=== PATIENT | male | born 1980 | race Hispanic/Latino ===

== ENCOUNTER 2018-07-08 19:00 | Emergency (ER) | payer OTHER, SELFPAY ==
[2018-07-08] MEDS ORDERED: Lidocaine 1% (PF) 30 ML VIAL ONE (19:52)
[2018-07-08] MEDS ORDERED: Adacel (T-DAP) 0.5 ML VIAL ONE (20:19)
[2018-07-08] MEDS ORDERED: Lidocaine 4% Cream 5 GM TUBE w/ Tegaderm ONE (21:02)
[2018-07-08] MEDS ORDERED: Bacitracin Zinc 1 Packet ONE ×2 (21:57→22:02)
== END 2018-07-08 22:00 | disposition home or self-care (01) ==
LOC: ERS 19:00
DX: L60.0 Ingrowing nail (principal); L03.031 Cellulitis of right toe; F17.210 Nicotine dependence, cigarettes, uncomplicated; Z71.6 Tobacco abuse counseling
CPT/HCPCS: 11765; 90471; 90715; J2001

== ENCOUNTER 2018-08-31 14:38 | Day surgery (SDC) | payer SELFPAY ==
[~2018-08-31 14:38] MED LIST: Dexamethasone 20 MG/5 ML VIAL ONE; Glycopyrrolate 0.2 MG/ML 5 ML SYRINGE ONE; Lidocaine 1% PF 5 ML VIAL ONE; Ondansetron HCl/PF 4 MG/2 ML Vial ONE; PROPOFOL 200 MG/20 ML VIAL ONE; Succinylcholine Chloride 20 MG/ML 10 ml SYRINGE FS ONE
[2018-08-31 15:07] LABS: #Basophils 0.1 thou/uL (0.0-0.2); #Eosinphils 0.4 thou/uL (0.0-0.7); #Lymphocytes 3.7 thou/uL (1.20-3.40); #Monocytes 1.1 thou/uL (0.11-0.59); #Neutrophils 6.9 thou/uL (1.40-6.50); %Basophils 0.6 % (0.0-1.0); %Lymphocytes 30.4 % (21.0-51.0); %Monocytes 9.2 % (0.0-10.0); %Neutrophils 56.8 % (42.0-75.0); Hemoglobin 14.4 g/dL (14.0-18.0); Mean Corpuscular HGB CONC 34.2 g/dL (32.0-36.0); Mean Corpuscular Hemoglobin 32.2 pg (27.0-31.0); Mean Corpuscular Volume 94.2 fL (78.0-98.0); Mean Platelet Volume 7.9 fL (7.4-10.4); Platelet Count 272 thou/uL (130-400); Red Blood Cell (RBC) Count 4.48 mill/uL (4.70-6.10); White Blood Cell (WBC) Count 12.1 thou/uL (4.8-10.8)
[2018-08-31] MEDS ORDERED: Ondansetron HCl/PF 4 MG/2 ML Vial ONE (15:11)
[2018-08-31] MEDS ORDERED: Morphine 4 MG/ML VIAL ONE (15:12)
[2018-08-31 15:35] LABS: Bilirubin Negative (Negative); Blood, Urine Negative (Negative); Clarity CLEAR (Clear); Glucose, Urine (Dipstick) Negative (Negative); Leukocyte Negative (Negative); Nitrite Negative (Negative); Protein, Urine (Dipstick) Negative (Neg-Trace); Specific Gravity, Urine 1.024 (1.002-1.036); Urobilinogen 0.2 mg/dL (0.2-1.0); pH, Urine 5.5 (5.0-9.0)
[2018-08-31 15:38] LABS: ALT (SGPT) 22 U/L (8-55); AST (SGOT) 14 U/L (5-34); Albumin 4.3 g/dL (3.5-5.0); Alkaline Phosphatase 113 U/L (40-150); Anion Gap 12 mmol/L (10-20); BUN (Urea Nitrogen) 13 mg/dL (8.9-20.6); Bilirubin, Total 0.6 mg/dL (0.2-1.2); Calc. Creatinine Clearance 0 mL/min (70-130); Calcium 9.6 mg/dL (7.8-10.44); Carbon Dioxide 24 mmol/L (22-29); Chloride 104 mmol/L (98-107); Estimated GFR-MDRD 89; Globulin 3.4 g/dL (2.4-3.5); Glucose 122 mg/dL (70-105); Lipase 27 U/L (8-78); Potassium 4.1 mmol/L (3.5-5.1); Protein, Total 7.7 g/dL (6.0-8.3); Sodium 136 mmol/L (136-145)
[2018-08-31] MEDS ORDERED: Piperacillin/Tazobactam 4.5 GM VIAL ONE (16:25)
[2018-08-31] MEDS ORDERED: Sodium Chloride 0.9% 100 ML ONE (16:25)
--- NOTE | 2018-08-31 17:51 | HP ---
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 He has a 2-day hist ory of right lower quadrant pain, nausea, vomiting on one occasion, increased pain with movement. He has not had a fever. He presents to the emergency room and was evaluated by Dr. David Waddell. ALLERGIES: None. TOBACCO: 3-6 cigarettes a day. ALCOHOL: Rarely. MEDICATIONS: None routinely. PAST SURGICAL HISTORY: Noncontributory. PAST MEDICAL HISTORY: Noncontributory. REVIEW OF SYSTEMS: Noncontributory. PHYSICAL EXAMINATION: VITAL SIGNS: Blood pressure 120/74, respiratory rate 18. HEAD, EARS, EYES, NOSE, AND THROAT: Unremarkable. LUNGS: Clear to auscultation. CARDIAC: Regular rate and rhythm without murmur or gallop. ABDOMEN: Soft. Tenderness in right lower quadrant, guarding, rebound. EXTREMITIES: Unremarkable. LABORATORY DATA: White count 12, hemoglobin 14. Basic metabolic profile normal. ASSESSMENT AND PLAN: Acute appendicitis. We recommend laparoscopic video appendectomy. Possibility of normal appendix discussed. Risk of operation including infection, bleeding, reoperation for blee ding were discussed. Consents obtained, questions answered.
[2018-08-31] MEDS ORDERED: Ketorolac Tromethamine 30 MG/ML VIAL ONE (18:36)
[2018-08-31] MEDS ORDERED: Midazolam HCl 2 mg/2 ml Vial ONE (18:41)
[2018-08-31] MEDS ORDERED: Bupivacaine/Epinephrine 0.25% 30 ML VIAL ONE (18:53)
[2018-08-31] MEDS ORDERED: Bupivacaine HCl 0.5%/Epinephrine 1:200,000/PF 30 ml Vial ONE (19:42)
[2018-08-31] MEDS ORDERED: Fentanyl 100 MCG/2 ML VIAL ONE ×2 (20:52→22:26)
[2018-08-31] MEDS ORDERED: HYDROmorphone 2 MG/ML VIAL ONE (20:53)
--- NOTE | 2018-09-01 02:31 | OP ---
PREOPERATIVE DIAGNOSES: Appendicitis, right lower quadrant pain. POSTOPERATIVE DIAGNOSIS: Right lower quadrant pain, uncertain etiology. PROCEDURE: Laparoscopic video appendectomy. Appendix appeared to be normal. SURGEON: Naga Padgett MD ANESTHESIA: General. Local 0.5% Marcaine with epinephrine, 30 mL. PROCEDURE IN DETAIL: The patient was taken to the operating room where under general anesthesia, abd omen was prepared with ChloraPrep, draped in routine fashion. Local anesthetic infiltrated into the skin and subcutaneous tissue about each port site. Infraumbilical incision was made. Pneumoperitone um to 15 mmHg obtained with the Veress needle, replacing it with a 5 port, video laparoscope inserted . Right lateral subcostal incision was made and a 5 port placed. Suprapubic incision was made and 1 2 port placed. Mesoappendix taken down with LigaSure. appendiceal stump across the cecum with Endo blue load BARRIE stapler. Appendix removed in an Endobag. Appendiceal stump hemostasis ens ured. Irrigant and pneumoperitoneum evacuated after suprapubic fascia approximated with 0 Vicryl Gra Nee needle. All instruments were removed and all skin incisions approximated with interrupted subder mal 4-0 Monocryl and DermaGlue applied.
== END 2018-08-31 23:06 | disposition home or self-care (01) ==
LOC: ERS 14:38 → SDC 18:11
PROVIDERS: ATTEND Specialist
PROC: 0DTJ4ZZ Resection of Appendix, Percutaneous Endoscopic Approach (ICD-10-PCS; principal; 2018-08-31)
DX: K35.80 Unspecified acute appendicitis (principal); F17.210 Nicotine dependence, cigarettes, uncomplicated
CPT/HCPCS: 36415; 80053; 81003; 83690; 85025; 88304; 96361; 96365; 96374; 96375; J0131; J0670; J1100; J1170; J1885; J2001; J2250; J2270; J2405; J2543; J2704; J3010; J7050

== ENCOUNTER 2020-09-17 12:03 | Emergency (ER) | payer SELFPAY ==
[2020-09-17 12:50] LABS: #Basophils 0.1 thou/uL (0.0-0.2); #Eosinphils 0.3 thou/uL (0.0-0.7); #Lymphocytes 2.7 thou/uL (1.20-3.40); #Monocytes 0.6 thou/uL (0.11-0.59); #Neutrophils 4.9 thou/uL (1.40-6.50); %Basophils 0.7 % (0.0-1.0); %Eosinophils 3.7 % (0.0-10.0); %Lymphocytes 31.6 % (21.0-51.0); %Monocytes 7.1 % (0.0-10.0); %Neutrophils 56.9 % (42.0-75.0); Hemoglobin 14.9 g/dL (14.0-18.0); Mean Corpuscular HGB CONC 35.7 g/dL (32.0-36.0); Mean Corpuscular Hemoglobin 32.2 pg (27.0-31.0); Mean Corpuscular Volume 90.1 fL (78.0-98.0); Platelet Count 223 thou/uL (130-400); RBC Distribution Width 11.9 % (11.5-14.5); Red Blood Cell (RBC) Count 4.62 mill/uL (4.70-6.10); White Blood Cell (WBC) Count 8.5 thou/uL (4.8-10.8)
[2020-09-17 13:36] LABS: ALT (SGPT) 23 U/L (8-55); AST (SGOT) 22 U/L (5-34); Albumin 4.2 g/dL (3.5-5.0); Alkaline Phosphatase 137 U/L (40-110); Anion Gap 17 mmol/L (10-20); BUN (Urea Nitrogen) 18 mg/dL (8.9-20.6); Bilirubin, Total 0.9 mg/dL (0.2-1.2); Calc. Creatinine Clearance 0 mL/min (70-130); Carbon Dioxide 23 mmol/L (22-29); Chloride 97 mmol/L (98-107); Estimated GFR-MDRD 84; Globulin 3.1 g/dL (2.4-3.5); Glucose 448 mg/dL (70-105); Potassium 4.9 mmol/L (3.5-5.1); Protein, Total 7.3 g/dL (6.0-8.3); Sodium 132 mmol/L (136-145)
[2020-09-17 14:05] LABS: Bilirubin Negative (Negative); Blood, Urine Negative (Negative); Clarity Clear (Clear); Glucose, Urine (Dipstick) Greater than 1000 mg/dL (Negative); Ketone, Urine 40 mg/dL (Negative); Leukocyte Negative Leu/uL (Negative); Nitrite Negative (Negative); Protein, Urine (Dipstick) Negative (Neg-Trace); Urobilinogen Normal mg/dL (Less than 2); pH, Urine 5.5 (5.0-9.0)
== END 2020-09-17 18:10 | disposition home or self-care (01) ==
LOC: ERS 12:03
DX: E11.65 Type 2 diabetes mellitus with hyperglycemia (principal); F17.210 Nicotine dependence, cigarettes, uncomplicated
CPT/HCPCS: 36416; 80053; 81003; 82010; 85025; 99284

== ENCOUNTER 2021-04-08 00:32 | Emergency (ER) | payer SELFPAY ==
[2021-04-08] MEDS ORDERED: Ketorolac Tromethamine 30 MG/ML VIAL ONE (03:48)
== END 2021-04-08 04:03 | disposition home or self-care (01) ==
LOC: ERS 00:32
DX: S93.402A Sprain of unspecified ligament of left ankle, initial encounter (principal); F17.210 Nicotine dependence, cigarettes, uncomplicated; X50.1XXA Overexertion from prolonged static or awkward postures, initial encounter
CPT/HCPCS: 96372; J1885

== ENCOUNTER 2021-09-28 16:10 | Inpatient (IN) | payer SELFPAY ==
[2021-09-28 18:18] LABS: Bilirubin Negative (Negative); Blood, Urine Negative (Negative); Clarity Clear (Clear); Glucose, Urine (Dipstick) Normal (Negative); Ketone, Urine Negative (Negative); Leukocyte Negative Leu/uL (Negative); Nitrite Negative (Negative); Protein, Urine (Dipstick) Negative (Neg-Trace); Specific Gravity, Urine 1.027 (1.002-1.036); Urobilinogen Normal mg/dL (Less than 2)
[2021-09-28 18:24] LABS: #Eosinphils 0.3 thou/uL (0.0-0.7); #Lymphocytes 4.1 thou/uL (1.20-3.40); #Monocytes 0.6 thou/uL (0.11-0.59); #Neutrophils 4.4 thou/uL (1.40-6.50); %Basophils 0.3 % (0.0-1.0); %Eosinophils 3.3 % (0.0-10.0); %Lymphocytes 43.4 % (21.0-51.0); %Monocytes 6.5 % (0.0-10.0); %Neutrophils 46.4 % (42.0-75.0); Hemoglobin 14.1 g/dL (14.0-18.0); Mean Corpuscular HGB CONC 35.2 g/dL (32.0-36.0); Mean Corpuscular Hemoglobin 32.3 pg (27.0-31.0); Mean Corpuscular Volume 91.8 fL (78.0-98.0); Platelet Count 251 thou/uL (130-400); RBC Distribution Width 11.4 % (11.5-14.5); Red Blood Cell (RBC) Count 4.37 mill/uL (4.70-6.10); White Blood Cell (WBC) Count 9.5 thou/uL (4.8-10.8)
[2021-09-28 18:53] LABS: ALT (SGPT) 17 U/L (8-55); AST (SGOT) 15 U/L (5-34); Albumin 4.3 g/dL (3.5-5.0); Alkaline Phosphatase 108 U/L (40-110); Anion Gap 13 mmol/L (10-20); BUN (Urea Nitrogen) 14 mg/dL (8.9-20.6); Bilirubin, Total 0.4 mg/dL (0.2-1.2); Calc. Creatinine Clearance 0 mL/min (70-130); Calcium 9.8 mg/dL (7.8-10.44); Carbon Dioxide 27 mmol/L (22-29); Chloride 102 mmol/L (98-107); Globulin 3.3 g/dL (2.4-3.5); Glucose 134 mg/dL (70-105); Potassium 3.8 mmol/L (3.5-5.1); Protein, Total 7.6 g/dL (6.0-8.3); Sodium 138 mmol/L (136-145)
[2021-09-28 19:40] LABS: SARS-CoV-2 NAA Rapid Test Not Detected (NotDetected)
[2021-09-28 20:16] LABS: Free T4 (Free Thyroxine) 0.91 ng/dL (0.70-1.48)
[2021-09-28 20:17] LABS: Luteinizing Hormone 0.51 mIU/mL (See Ranges)
[2021-09-28 20:20] VITALS: BMI 40.4
[2021-09-28] MEDS ORDERED: Ondansetron PF 4 MG/2 ML Vial IVP PRN (21:21)
[2021-09-28] MEDS ORDERED: Acetaminophen 325 MG TAB PO PRN (21:21)
[2021-09-29 04:11] LABS: #Basophils 0.1 thou/uL (0.0-0.2); #Eosinphils 0.4 thou/uL (0.0-0.7); #Lymphocytes 4.2 thou/uL (1.20-3.40); #Monocytes 0.9 thou/uL (0.11-0.59); #Neutrophils 3.3 thou/uL (1.40-6.50); %Basophils 0.8 % (0.0-1.0); %Eosinophils 4.5 % (0.0-10.0); %Lymphocytes 46.9 % (21.0-51.0); %Monocytes 10.1 % (0.0-10.0); %Neutrophils 37.8 % (42.0-75.0); Hemoglobin 13.5 g/dL (14.0-18.0); Mean Corpuscular HGB CONC 35.9 g/dL (32.0-36.0); Mean Corpuscular Hemoglobin 32.9 pg (27.0-31.0); Mean Corpuscular Volume 91.8 fL (78.0-98.0); Mean Platelet Volume 8.1 fL (7.4-10.4); Platelet Count 245 thou/uL (130-400); RBC Distribution Width 11.3 % (11.5-14.5); Red Blood Cell (RBC) Count 4.09 mill/uL (4.70-6.10); White Blood Cell (WBC) Count 8.8 thou/uL (4.8-10.8)
[2021-09-29 04:36] LABS: Anion Gap 13 mmol/L (10-20); BUN (Urea Nitrogen) 15 mg/dL (8.9-20.6); Calc. Creatinine Clearance 219 mL/min (70-130); Calcium 9.3 mg/dL (7.8-10.44); Carbon Dioxide 25 mmol/L (22-29); Chloride 104 mmol/L (98-107); Glucose 120 mg/dL (70-105); Potassium 3.9 mmol/L (3.5-5.1); Sodium 138 mmol/L (136-145)
[2021-09-29 05:54] LABS: Hemoglobin A1c 6.3 % (4.0-6.0)
[2021-09-29] MEDS ORDERED: Lorazepam 2 MG/ML VIAL SLOW IVP PRN ×2 (13:41→15:30)
[2021-09-29] MEDS ORDERED: Oxymetazoline HCl 0.05% (30 ML BOT) NS PRN (13:50)
[2021-09-29] MEDS ORDERED: Fluticasone Propionate Nasal Spray 16 gm Bottle NASAL SCH (14:00)
[2021-09-30] MEDS ORDERED: Lorazepam 2 MG/ML VIAL SLOW IVP SCH (06:45)
[2021-09-30 07:58] VITALS: TEMP 98.2
[2021-09-30] MEDS ORDERED: Fluticasone Propionate Nasal Spray 16 gm Bottle NASAL SCH (09:00)
[2021-09-30] MEDS ORDERED: Magnevist 469MG/ML 20 ML VIAL ONE (13:37)
[2021-09-30 13:48] VITALS: BP 143/68
== END 2021-09-30 17:01 | disposition home or self-care (01) | DRG 644 ==
LOC: ERS 16:10 → ONC 18:10
PROVIDERS: ADMIT Family Medicine; ATTEND Internal Medicine
DX: D35.2 Benign neoplasm of pituitary gland (principal); Z68.41 Body mass index [BMI] 40.0-44.9, adult; E11.9 Type 2 diabetes mellitus without complications; F17.210 Nicotine dependence, cigarettes, uncomplicated; N62 Hypertrophy of breast; H02.432 Paralytic ptosis of left eyelid; E66.01 Morbid (severe) obesity due to excess calories; H49.02 Third [oculomotor] nerve palsy, left eye; Z88.8 Allergy status to other drugs, medicaments and biological substances; Z82.49 Family history of ischemic heart disease and other diseases of the circulatory system; Z83.3 Family history of diabetes mellitus; Z80.9 Family history of malignant neoplasm, unspecified; Z90.49 Acquired absence of other specified parts of digestive tract
CPT/HCPCS: 36415; 70450; 70553; 80048; 80053; 81003; 82533; 83002; 83003; 83036; 84146; 84439; 84443; 85025; 93005; J2060; U0002

== ENCOUNTER 2024-01-17 16:27 | Emergency (ER) | payer SELFPAY ==
[2024-01-17] MEDS ORDERED: Acetaminophen 500 MG TAB ONE (16:33)
[2024-01-17 16:55] LABS: #Eosinphils 0.2 thou/uL (0.0-0.7); #Monocytes 0.5 thou/uL (0.11-0.59); #Neutrophils 4.5 thou/uL (1.40-6.50); %Basophils 0.5 % (0.0-1.0); %Eosinophils 2.9 % (0.0-10.0); %Lymphocytes 29.2 % (21.0-51.0); %Monocytes 6.7 % (0.0-10.0); %Neutrophils 60.4 % (42.0-75.0); Hematocrit 38.4 % (42.0-52.0); Hemoglobin 13.4 g/dL (14.0-18.0); Mean Corpuscular HGB CONC 34.9 g/dL (32.0-36.0); Mean Corpuscular Hemoglobin 32.2 pg (27.0-31.0); Mean Corpuscular Volume 92.3 fl (78.0-98.0); Mean Platelet Volume 10.1 fL (7.4-10.4); Platelet Count 197 10x3/uL (130-400); Red Blood Cell (RBC) Count 4.16 mill/uL (4.70-6.10); White Blood Cell (WBC) Count 7.5 10x3/uL (4.8-10.8)
[2024-01-17 17:11] LABS: ALT (SGPT) 22 U/L (8-55); AST (SGOT) 17 U/L (5-34); Albumin 3.2 g/dL (3.5-5.0); Alkaline Phosphatase 62 U/L (40-110); Anion Gap 10 mmol/L (10-20); BUN (Urea Nitrogen) 10 mg/dL (8.9-20.6); Bilirubin, Total 0.4 mg/dL (0.2-1.2); Calc. Creatinine Clearance 0 mL/min (70-130); Calcium 8.3 mg/dL (7.8-10.44); Carbon Dioxide 26 mmol/L (22-29); Chloride 108 mmol/L (98-107); Estimated GFR 110; Globulin 2.1 g/dL (2.4-3.5); Glucose 129 mg/dL (70-105); Protein, Total 5.3 g/dL (6.0-8.3); Sodium 140 mmol/L (136-145)
[2024-01-17 17:13] LABS: Troponin I Less than 0.010 ng/mL (< 0.028)
== END 2024-01-17 18:11 | disposition home or self-care (01) ==
LOC: ERS 16:27
DX: R55 Syncope and collapse (principal); E11.9 Type 2 diabetes mellitus without complications; F17.210 Nicotine dependence, cigarettes, uncomplicated
CPT/HCPCS: 36415; 80053; 84484; 85025; 93005